=== PATIENT | female | born 1955 | race Caucasian/White ===

== ENCOUNTER 2016-10-11 14:22 | Emergency (ER) ==
--- NOTE | 2016-10-11 14:31 | PROVIDER DOCUMENTATION ---
HPI-Abdominal Pain/GI Problem - General Stated Complaint: R flank pain Time Seen by Provider: 10/11/16 14:23 Source: patient Allergies/Adverse Reactions: Patient Allergies Allergy/AdvReac Type Severity Reaction Status Date / Time amoxicillin [Amoxicillin] Allergy Mild RASH, Verified 10/11/16 14:46 ITCHING oxytetracycline Allergy Mild SWELLING, Verified 10/11/16 14:46 [From Terramycin] ITCHING oxytetracycline HCl * Allergy Mild SWELLING, Verified 10/11/16 14:46 [From Terramycin] ITCHING meperidine HCl * AdvReac halucinatio Verified 10/11/16 14:46 [From Demerol] ns Home Medications: Home Medication List Medication Instructions Recorded Confirmed Last Taken Type Tiotropium Ollie Inhaler 1 puff INH RTDAILY 09/04/13 10/11/16 06/13/14 06:00 History [Spiriva] Amlodipine [Norvasc] 5 mg PO DAILY #90 tablet 06/15/14 10/11/16 Unknown Rx Alprazolam [Xanax] 0.25 mg PO PRN PRN 10/11/16 10/11/16 Unknown History Ibuprofen [Advil] 100 mg PO PRN PRN 10/11/16 10/11/16 Unknown History - History of Present Illness-ABD Nature of Presenting Problems: Patient is a 61 y/o F that presents with right flank pain that began half hour to hour prior to arrival. history of kidney stones. denies n/v/d. Abdominal Pain Onset Location: reports: flank (Right) Pain Radiation: reports: no radiation Quality of Pain: reports: sharp Severity in ED: reports: moderate, severe Onset/Duration: reports: abrupt, 1/2 hour ago, 1 hour ago Timing: reports: still present, constant, getting worse Activities at Onset: reports: none Modifying Factors: improves with: nothing Associated Symptoms: reports: back/neck pain. denies: diaphoresis, diarrhea, dizziness, fever/chills, genitourinary problems, nausea, vomiting Similar Symptoms Previously?: Yes Recently seen or treated by another doctor?: Yes Review of Systems - Adult - REVIEW OF SYSTEMS - ADULT Constitutional: denies: chills, fever Eyes: reports: no symptoms reported Ears, Nose, Mouth & Throat: denies: ear pain, sinus problem, throat pain, throat swelling Cardiovascular: denies: chest pain, palpitations, syncope Respiratory: reports: no symptoms reported Gastrointestinal: denies: abdominal pain, hematemesis, diarrhea, nausea, vomiting Genitourinary: reports: flank pain. denies: dysuria, frequency, hematuria Musculoskeletal: reports: no symptoms reported Integumentary: reports: no symptoms reported Neurological: reports: no symptoms reported Psychiatric: reports: no symptoms reported Endocrine: reports: no symptoms reported Hematologic/Lymphatic: reports: no symptoms reported Allergic/Immunologic: reports: no symptoms reported All Other Systems: Reviewed and Negative Past History - Adult - PAST MEDICAL HISTORY-ADULT Review of Records: reports: Old Records Reviewed, Nursing Assessment Review, Medications Reviewed Cardiovascular: reports: CAD, HTN Respiratory: reports: asthma, COPD Genitourinary: reports: kidney stones Other Conditions: reports: eye problems/injury (macular degeneration) - PRIOR SURGERIES/PROCEDURES Surgical/Procedure History: reports: appendectomy, other (vulvectomy) - IMMUNIZATION STATUS Childhood Immunizations: See Nurse Assessment Flu Vaccine: See Nurse Assessment - FAMILY HISTORY Family History: reviewed, not pertinent - SOCIAL HISTORY Smoking: cigarettes, less than 1 pack/day Living Situation: family Physical Exam-General - PHYSICAL EXAM-ADULT Initial Vital Signs Reviewed: Yes - CONSTITUTIONAL General Appearance: alert, mild distress, moderate distress, anxious - EYES Eyes: PERRL/EOMI, pink conjunctivae - HEAD, EARS, NOSE, MOUTH & THROAT HENMT: normocephalic/atraumatic, moist mucous membranes, normal ENT inspection - NECK Neck: full range of motion, normal inspection - RESPIRATORY Respiratory: lungs clear, normal breath sounds, no respiratory distress, no accessory muscle use - CARDIOVASCULAR Cardiovascular: regular rate, rhythm, no gallop, no murmur - GASTROINTESTINAL (ABDOMEN) Abdominal Exam: normal bowel sounds, soft, no organomegaly, no pulsatile mass, tenderness (right flank, hard to completely assess due to patient not moving hand) - MUSCULOSKELETAL Extremity: normal range of motion, normal inspection, no calf tenderness, normal capillary refill - SKIN Integumentary: normal color, warm/dry - NEUROLOGIC Neurologic: grossly normal, no motor/sensory deficits - PSYCHIATRIC Psych/Mental Status: oriented x 3, anxious Progress - PLAN OF CARE/RESULTS Progress/Plan/Lab Results: plan of care-meds, RSS Vital Signs Temp Pulse Resp BP Pulse Ox 10/11/16 14:26 98.3 F 96 H 18 151/91 95 amoxicillin [Amoxicillin] Allergy (Mild, Verified 10/11/16 14:46) RASH, ITCHING oxytetracycline [From Terramycin] Allergy (Mild, Verified 10/11/16 14:46) SWELLING, ITCHING oxytetracycline HCl * [From Terramycin] Allergy (Mild, Verified 10/11/16 14:46) SWELLING, ITCHING meperidine HCl * [From Demerol] Adverse Reaction (Verified 10/11/16 14:46) halucinations Tiotropium Ollie Inhaler [Spiriva] 1 puff INH RTDAILY 09/04/13 Amlodipine [Norvasc] 5 mg PO DAILY #90 tablet 06/15/14 Alprazolam [Xanax] 0.25 mg PO PRN PRN 10/11/16 Ibuprofen [Advil] 100 mg PO PRN PRN 10/11/16 Orders Category Date Time Status RENAL STONE SEARCH [CT] Stat Exams 10/11/16 14:35 Completed 0.9% Sodium Chloride Inj [Ns] 1,000 ml Med 10/11/16 14:45 Active IV 500 mls/hr Hydromorphone [Dilaudid] Med 10/11/16 14:32 Discontinued 1 mg IV NOW ONE Ketorolac [Toradol] Med 10/11/16 15:26 Discontinued 30 mg IV NOW ONE Methocarbamol [Robaxin] 1,000 mg Med 10/11/16 15:27 Discontinued 0.9% Sodium Chloride Inj [Ns] 50 ml IV NOW Ondansetron [Zofran] Med 10/11/16 14:33 Discontinued 4 mg IV NOW ONE Tamsulosin [Flomax] Med 10/11/16 14:34 Discontinued 0.4 mg PO NOW ONE pt will be d/c home f/u with pcp, pt was clinically stable, pt f/u with urology. rx given - REASSESSMENT Reassessment #1 Time Reassessed: 16:47 Status: improving Reassessment Comment: pain is more muscular skeletal - CT/MRI 1 CT Study: Renal Stone Impression: Abnormal CT Results: nonobstructing kidney stones, no hydro, nad Departure - Departure Time of Disposition Order: 16:48 DIAGNOSIS: Muscle pain Disposition: HOME 01 Certified Medical Emergency: Emergent Condition: Stable Additional Instructions: ED Follow Up Instructions: You have been treated by a care provider in the Emergency Department. These instructions are being provided to you so you can have an understanding of how to care for yourself upon discharge. Upon discharge from the Emergency Department, you are responsible for making arrangements for follow-up care by a physician of your choice. Take all prescribed medications as directed. Return to the Emergency Department immediately for any new or worsening symptoms. You may call the Physician Referral phone number at [phone] to obtain a list of Physicians who are taking new patients. Referrals: None,PCP [Primary Care Provider] - Attestation - Scribe Verification/Attestation Scribe:: Indra Meneses Acting as Scribe for:: Neville Pate Scribe documention review:: This chart was documented by a scribe and accurately reflects the service the provider performed and the decisions made by the provider. Physician Attestation - Physician Attestation I, the provider, attest to the following statement:: Neville Pate Physician documentation Attestation:: This documentation recorded by the scribe accurately reflects the service I personally performed and the decisions made by me.
[2016-10-11] MEDS ORDERED: DILAUDID IV ONE (14:32)
[2016-10-11] MEDS ORDERED: ZOFRAN IV ONE (14:33)
[2016-10-11] MEDS ORDERED: FLOMAX PO ONE (14:34)
[2016-10-11] MEDS ORDERED: NS 1,000 ML IV SCH (14:45)
--- NOTE | 2016-10-11 15:24 | Diag Imaging Result Document ---
PROCEDURE NAME: RENAL STONE SEARCH - 10/11/2016 CT UROGRAM WITHOUT CONTRAST: FINDINGS: There is no evidence of acute disease in the visualized portion of the chest. There are cysts in the left hepatic lobe which were also present on 06/01/2016. There are multiple caliceal stones bilaterally. The largest is in the lower pole of the left kidney measuring over 10 mm in size. There is no evidence of hydronephrosis on either side. There is no evidence of ureterolithiasis. The patient is status post appendectomy. The gallbladder has been resected as well. Overall, there has been no significant change since 06/01/2016. IMPRESSION: Nonobstructing kidney stones. No evidence of hydronephrosis or ureterolithiasis.
[2016-10-11] MEDS ORDERED: TORADOL IV ONE (15:26)
[2016-10-11] MEDS ORDERED: ROBAXIN 1,000 MG in NS 50 ML IV ONE (15:27)
[2016-10-11 17:02] LABS: MANUAL DIFF NEEDED? NO
[2016-10-11 17:09] LABS: BASO% 0.2 % (0.0-0.8); EOS# 0.35 X1000 (0.0-0.7); EOS% 3.5 % (0.0-10.0); HEMATOCRIT 46.5 % (37.0-47.0); HEMOGLOBIN 15.7 g/dL (12.0-16.0); IMM GRAN# 0.02 X1000 (0.0-0.04); IMM GRAN% 0.2 % (0.0-0.5); LYMPH# 3.34 X1000 (1.2-3.4); LYMPH% 33.3 % (20.5-51.1); MCHC 33.8 g/dL (33-37); MCV 85.8 FL (81-99); MONO# 0.74 X1000 (0.11-0.59); MONO% 7.4 % (1.7-9.3); MPV 11.6 FL (7.4-10.4); NEUT% 55.4 % (42.2-75.2); PLT 243 X1000 (130-400); RBC 5.42 XMIL (4.2-5.4)
[2016-10-11 17:10] LABS: BILIRUBIN URINE NEGATIVE (NEGATIVE); COLOR YELLOW; GLUCOSE URINE NEGATIVE (NEGATIVE); LEUKOCYTES URINE TRACE (NEGATIVE); NITRITE URINE NEGATIVE (NEGATIVE); PROTEIN URINE NEGATIVE (NEGATIVE); TURBIDITY URINE CLEAR (CLEAR); URINE MICRO REVIEW NEEDED? NO; URINE SOURCE CLEAN CATCH; UROBILINOGEN URINE NORMAL (NORMAL)
[2016-10-11 17:12] LABS: UR EPITHELIAL CELLS <10 /HPF (<10); URINE BACTERIA NEGATIVE /HPF; URINE CULTURE NEEDED? YES; URINE WBC <10 /HPF (<10)
[2016-10-11 17:22] LABS: BLOOD URINE SMALL (NEGATIVE); SP GRAVITY URINE 1.013
[2016-10-11 17:29] VITALS: BP 156/100
[2016-10-11 17:29] LABS: AGAP 17; ALBUMIN 4.4 g/dL (3.5-5.0); ALKALINE PHOSPHATASE 85 U/L (32-104); BUN 11 mg/dL (8-22); CHLORIDE 93 mmol/L (98-107); COSMO 271; GOT 24 U/L (10-30); GPT 22 U/L (10-36); POTASSIUM 4.1 mmol/L (3.5-5.1); SODIUM 135 mmol/L (136-145); TCO2 25 mmol/L (25-35); TOTAL PROTEIN 7.2 g/dL (6.3-8.3)
== END 2016-10-11 17:30 | disposition home or self-care (01) ==
LOC: EDBD → ED 14:22
DX: M79.1 Myalgia (principal); R10.9 Unspecified abdominal pain; Z87.442 Personal history of urinary calculi; I25.10 Atherosclerotic heart disease of native coronary artery without angina pectoris; I10 Essential (primary) hypertension; J44.9 Chronic obstructive pulmonary disease, unspecified; H35.30 Unspecified macular degeneration; N20.0 Calculus of kidney; Z79.899 Other long term (current) drug therapy; Z79.51 Long term (current) use of inhaled steroids; F17.210 Nicotine dependence, cigarettes, uncomplicated; R07.9 Chest pain, unspecified
CPT/HCPCS: 71020; 71100; 74176; 80053; 81001; 85025; 87088; 96365; 96375; J1170; J1885; J2405; J2800; J7030